=== PATIENT | male | born 1985 | race Caucasian/White ===

== ENCOUNTER 2020-11-17 10:34 | Emergency (ER) | payer BC ==
[2020-11-17 13:02] LABS: SARS-COV-2 RT PCR NEGATIVE (NEGATIVE)
--- NOTE | 2020-11-17 13:05 | EDPHYS ---
Physician Documentation [facility] Name: Donald Galloway Age: 35 yrs Sex: Male : 1985 Arrival Date: 11/17/2020 Time: 10:39 Bed 25 Private MD: ED Physician Simone Luciano HPI: 11/17 11:25 This 35 yrs old Male presents to ER via Ambulatory with complaints of jmm Congestion. 11:25 The patient or guardian reports cough. Onset: The symptoms/episode began/occurred jmm gradually, 3 day(s) ago. Modifying factors: The symptoms are alleviated by nothing. the symptoms are aggravated by nothing. Associated signs and symptoms:. This is a 35 year old male with no chronic medical conditions that presents to the ED with complaints of cough, congestion sore throat and right sided ear pain. Denies fever. . Historical: - Allergies: 10:52 No Known Allergies; iw - PMHx: 10:52 None; iw - PSHx: 10:52 None; iw - Immunization history:: Flu vaccine is not up to date. - Social history:: Smoking status: Patient reports use of chewing tobacco. Patient denies any tobacco usage or history of. ROS: 11:25 Cardiovascular: Negative for chest pain, palpitations, and edema, Respiratory: Negative jmm for shortness of breath, cough, wheezing, and pleuritic chest pain, Abdomen/GI: Negative for abdominal pain, nausea, vomiting, diarrhea, and constipation, Back: Negative for injury and pain. 11:25 Constitutional: Positive for body aches. 11:25 ENT: Positive for ear pain, sore throat. 11:25 All other systems are negative. Exam: 11:25 Constitutional: This is a well developed, well nourished patient who is awake, alert, jmm and in no acute distress. Head/Face: atraumatic. Eyes: EOMI, no conjunctival erythema appreciated 11:25 Neck: Trachea midline, Supple Chest/axilla: Normal chest wall appearance and motion. Cardiovascular: Regular rate and rhythm. No edema appreciated Respiratory: Normal respirations, no respiratory distress appreciated Abdomen/GI: Non distended, soft Back: Normal ROM Skin: General appearance color normal MS/ Extremity: Moves all extremities, no obvious deformities appreciated, no edema noted to the lower extremities Neuro: Awake and alert, normal gait Psych: Behavior is normal, Mood is normal, Patient is cooperative and pleasant 11:25 ENT: TM's: erythema, that is mild, on the right, Posterior pharynx: erythema, that is mild. Vital Signs: 10:52 BP 124 / 83; Pulse 77; Resp 16; Temp 98.8; Pulse Ox 100% ; Height 5 ft. 11 in. (180.34 iw cm); Pain 1/10; MDM: 11:25 Patient medically screened. [facility] 13:04 Data reviewed: vital signs, nurses notes. Counseling: I had a detailed discussion with kika the patient and/or guardian regarding: the historical points, exam findings, and any diagnostic results supporting the discharge/admit diagnosis, lab results, radiology results, the need for outpatient follow up, to return to the emergency department if symptoms worsen or persist or if there are any questions or concerns that arise at home. ED course: Patient is alert and non toxic in appearance in the ED. No signs of resp distress. patient advised to follow up with pcp and otherwise given strict return precaution. patient understood and agrees with the plan of care. . 11/17 11:12 Order name: Strep; Complete Time: 12:59 em1 11/17 12:44 Order name: Throat Culture EDMS 11/17 13:03 Order name: COVID-19/FLU A+B; Complete Time: 13:03 EDMS Administered Medications: No medications were administered Disposition: 15:21 Co-signature as Attending Physician, Simone Luciano MD. rn Disposition: 11/17/20 13:05 Discharged to Home. Impression: Acute pharyngitis, Acute upper respiratory infection, unspecified. - Condition is Stable. - Discharge Instructions: Pharyngitis, Upper Respiratory Infection, Adult. - Prescriptions for Zithromax Z- Jeffery 250 mg Oral Tablet - take 1 tablet by ORAL route as directed for 5 days Day 1 - take two (2) tablets one time. Day 2, 3, 4 , 5 take one (1) tablet once daily.; 6 tablet. Medrol (Jeffery) 4 mg Oral Tablets, Dose Pack - take 1 tablet by ORAL route as directed - follow package instructions; 1 packet. - Medication Reconciliation Form, Thank You Letter, Antibiotic Education, Prescription Opioid Use, Work release form form. - Follow up: Private Physician; When: 2 - 3 days; Reason: Recheck today's complaints, Continuance of care, Re-evaluation by your physician. Signatures: Dispatcher [employer] EDAL Elmer Stewart PA PA jmm Williams, Irene, RN RN iw Nieto, Roman, MD MD rn Brown, DAWNA Dallas RN Corrections: (The following items were deleted from the chart) 12: 11:11 Influenza Screen (A \T\ B)+BA.LAB.BRZ ordered. EDMS EDMS 12:08 11:12 CORONAVIRUS+MR.LAB.BRZ ordered. EDAL EDMS 13:24 13:05 11/17/2020 13:05 Discharged to Home. Impression: Acute pharyngitis; Acute upper zb respiratory infection, unspecified. Condition is Stable. Forms are Medication Reconciliation Form, Thank You Letter, Antibiotic Education, Prescription Opioid Use. Follow up: Private Physician; When: 2 - 3 days; Reason: Recheck today's complaints, Continuance of care, Re-evaluation by your physician. kika
--- NOTE | 2020-11-17 13:05 | ER ---
Nurse's Notes [facility] Name: Donald Galloway Age: 35 yrs Sex: Male : 1985 Arrival Date: 11/17/2020 Time: 10:39 Bed 25 Private MD: Diagnosis: Acute pharyngitis;Acute upper respiratory infection, unspecified Presentation: 11/17 10:52 Chief complaint: Patient states: Congestion with slight cough since Tuesday. No fever. iw Slight sore throat. Coronavirus screen: Client denies travel out of the [place] in the last 14 days. congestion, cough unrelated to allergies, difficulty breathing, runny nose, shortness of breath, sore throat, Client presents with at least one sign or symptom that may indicate coronavirus-19. Standard/surgical mask placed on the client. Ebola Screen: Patient denies travel to an Ebola-affected area in the 21 days before illness onset. Resp Distress? No respiratory distress is noted at this time. Initial Sepsis Screen: Does the patient meet any 2 criteria? No. Patient's initial sepsis screen is negative. Does the patient have a suspected source of infection? Yes: Other: nasal congestion. Risk Assessment: Do you want to hurt yourself or someone else? Patient reports no desire to harm self or others. Onset of symptoms was November 14, 2020. 10:52 Method Of Arrival: Ambulatory iw 10:52 Acuity: ZEV 4 iw Historical: - Allergies: 10:52 No Known Allergies; iw - PMHx: 10:52 None; iw - PSHx: 10:52 None; iw - Immunization history:: Flu vaccine is not up to date. - Social history:: Smoking status: Patient reports use of chewing tobacco. Patient denies any tobacco usage or history of. Screenin:22 Abuse screen: Denies threats or abuse. Denies injuries from another. Nutritional zb screening: No deficits noted. Tuberculosis screening: No symptoms or risk factors identified. Fall Risk None identified. Assessment: 13:22 General: Appears in no apparent distress. comfortable, Behavior is calm, cooperative. zb Pain: Complains of pain in throat. Neuro: Level of Consciousness is awake, alert, obeys commands. Cardiovascular: Patient's skin is warm and dry. Respiratory: Airway is patent Respiratory effort is even, unlabored, Respiratory pattern is regular, symmetrical. Respiratory: Breath sounds are clear bilaterally. GI: No deficits noted. EENT: Reports nasal congestion nasal discharge. Derm: Skin is intact, is healthy with good turgor. Musculoskeletal: Range of motion: intact in all extremities. Vital Signs: 10:52 BP 124 / 83; Pulse 77; Resp 16; Temp 98.8; Pulse Ox 100% ; Height 5 ft. 11 in. (180.34 iw cm); Pain 1/10; ED Course: 10:39 Patient arrived in ED. bp1 10:52 Arm band placed on. iw 10:55 Triage completed. iw 11:03 Elmer Stewart PA is PHCP. [facility] 11:03 Simone Luciano MD is Attending Physician. kika 11:08 Jacquelin Rodgers, RN is Primary Nurse. ll1 13:23 No provider procedures requiring assistance completed. Patient did not have IV access zb during this emergency room visit. 13:24 Patient has correct armband on for positive identification. Bed in low position. Call zb light in reach. Pulse ox on. NIBP on. Door closed. Noise minimized. Administered Medications: No medications were administered Outcome: 13:05 Discharge ordered by . jm 13:23 Discharged to home ambulatory, with family. zb 13:23 Condition: stable 13:23 Discharge instructions given to patient, Instructed on discharge instructions, follow up and referral plans. medication usage, Demonstrated understanding of instructions, follow-up care, medications, Prescriptions given X 2. 13:24 Patient left the ED. zb Signatures: Elmer Stewart PA PA jmm Williams, Irene, RN RN Jacquelin Rodgers RN RN [facility] Celena Martin RN RN zb
[2020-11-17 13:29] VITALS: BP 124/83; TEMP 98.8; O2SAT 100
== END 2020-11-17 13:24 | disposition home or self-care (01) ==
LOC: ER 10:34
DX: J06.9 Acute upper respiratory infection, unspecified (principal); J02.9 Acute pharyngitis, unspecified; F17.220 Nicotine dependence, chewing tobacco, uncomplicated; Z20.822 Contact with and (suspected) exposure to COVID-19
CPT/HCPCS: 87070; 87081; 0240U; 99283

== ENCOUNTER 2021-01-14 00:22 | Emergency (ER) | payer BC ==
--- OUTSIDE RECORDS SUMMARY | 2021-01-14 00:25 | XMS REPORT | Continuity of Care Document ---
:1985 Author Organization [facility] t Address [address] [place] [address] Dr. Oakes [address] [place] [id number] Care Team Providers Name Role Phone Unavailable Unavailable Unavailable Problems This patient has no known problems. Allergies, Adverse Reactions, Alerts This patient has no known allergies or adverse reactions. Medications This patient has no known medications. Procedures This patient has no known procedures. Results This patient has no known results.
--- NOTE | 2021-01-14 03:25 | ER ---
Nurse's Notes [facility] Name: Donald Galloway Age: 35 yrs Sex: Male : 1985 Arrival Date: 01/14/2021 Time: 00:24 Bed 26 Private MD: Diagnosis: Disease of upper respiratory tract, unspecified-COVID 19 Presentation: 01/14 01:00 Chief complaint: Patient states: is covid positive and he has had 2 negative test bs2 but has minor covid symptoms. Coronavirus screen: congestion, headache, muscle pain, nausea, runny nose, Client presents with at least one sign or symptom that may indicate coronavirus-19. Standard/surgical mask placed on the client. Provider contacted for isolation considerations. Ebola Screen: No symptoms or risks identified at this time. Initial Sepsis Screen: Does the patient meet any 2 criteria? No. Patient's initial sepsis screen is negative. Does the patient have a suspected source of infection? No. Patient's initial sepsis screen is negative. Risk Assessment: Do you want to hurt yourself or someone else? Patient reports no desire to harm self or others. Onset of symptoms was January 11, 2021. 01:00 Method Of Arrival: Ambulatory bs2 01:00 Acuity: ZEV 5 bs2 Triage Assessment: 01:00 General: Appears in no apparent distress. comfortable, well groomed, well developed, bs2 well nourished, Behavior is calm, cooperative, appropriate for age. Pain: Complains of pain in headache, sinus pressure Pain currently is 3 out of 10 on a pain scale. Respiratory: No deficits noted. Breath sounds are clear bilaterally. Historical: - Allergies: 01:00 No Known Allergies; bs2 - Home Meds: 01:00 None [Active]; bs2 - PMHx: 01:00 None; bs2 - PSHx: 01:00 None; bs2 - Immunization history:: Adult Immunizations not up to date. - Social history:: Smoking status: Patient reports use of chewing tobacco. - Family history:: not pertinent. Screenin:00 Abuse screen: Denies threats or abuse. Denies injuries from another. Nutritional bs2 screening: No deficits noted. Tuberculosis screening: No symptoms or risk factors identified. Fall Risk None identified. Assessment: 01:00 General: Appears in no apparent distress. comfortable, well groomed, well developed, bs2 well nourished, Behavior is calm, cooperative, appropriate for age. Cardiovascular: No deficits noted. Capillary refill < 3 seconds Patient's skin is warm and dry. Respiratory: No deficits noted. Airway is patent Trachea midline Respiratory effort is even, unlabored, Respiratory pattern is regular, symmetrical. Respiratory: Breath sounds are clear bilaterally. GI: No signs and/or symptoms were reported involving the gastrointestinal system. : No signs and/or symptoms were reported regarding the genitourinary system. Vital Signs: 01:00 BP 125 / 74 LA Sitting (auto/reg); Pulse 71 MON; Resp 16 S; Temp 99.1(O); Pulse Ox 100% bs2 on R/A; Weight 102.06 kg (R); Height 5 ft. 11 in. (180.34 cm) (R); Pain 3/10; 03:30 BP 124 / 70; Pulse 71; Resp 16; Temp 99.2; Pulse Ox 100% ; Pain 3/10; bs2 01:00 Body Mass Index 31.38 (102.06 kg, 180.34 cm) bs2 ED Course: 00:24 Patient arrived in ED. es 00:50 Salome Torrez MD is Attending Physician. ma2 01:00 Arm band placed on right wrist. bs2 01:00 Patient has correct armband on for positive identification. Bed in low position. Call bs2 light in reach. Side rails up X 1. Pulse ox on. NIBP on. Door closed. Noise minimized. Lights dimmed. Warm blanket given. 01:03 Mary Washburn RN is Primary Nurse. bs2 02:11 Triage completed. bs2 03:30 No provider procedures requiring assistance completed. Patient did not have IV access bs2 during this emergency room visit. Administered Medications: No medications were administered Outcome: 03:25 Discharge ordered by . ma2 03:30 Discharged to home ambulatory. bs2 03:30 Condition: stable 03:30 Discharge instructions given to patient, Instructed on discharge instructions, follow up and referral plans. medication usage, Demonstrated understanding of instructions, follow-up care, medications, Prescriptions given X 3. 03:31 Patient left the ED. bs2 Signatures: Barbara Black Mohammad, MD MD ma2 Smith, Bridget, RN RN bs2 Corrections: (The following items were deleted from the chart) 01:23 01:04 CORONAVIRUS+.ANDREEA drawn and sent. bs2 EDMS
--- NOTE | 2021-01-14 03:25 | EDPHYS ---
Physician Documentation [facility] Name: Donald Galloway Age: 35 yrs Sex: Male : 1985 Arrival Date: 01/14/2021 Time: 00:24 Bed 26 Private MD: ED Physician Salome Torrez HPI: 01/14 01:35 This 35 yrs old Male presents to ER via Unassigned with complaints of ma2 Congestion, Headache, Nausea. 01:35 Onset: The symptoms/episode began/occurred gradually, 3 day(s) ago. Associated signs ma2 and symptoms: Pertinent positives: Pertinent negatives: dizziness, malaise, neck stiffness, paresthesias. Severity of symptoms: At its worst the pain was very mild. Headache History: The patient has had previous headaches and this one is similar to previous episodes. The patient has not experienced similar symptoms in the past. Historical: - Allergies: 01:00 No Known Allergies; bs2 - Home Meds: 01:00 None [Active]; bs2 - PMHx: 01:00 None; bs2 - PSHx: 01:00 None; bs2 - Immunization history:: Adult Immunizations not up to date. - Social history:: Smoking status: Patient reports use of chewing tobacco. - Family history:: not pertinent. ROS: 01:35 Constitutional: Negative for fever, chills, and weight loss. ma2 01:35 All other systems are negative. Exam: 01:35 Constitutional: This is a well developed, well nourished patient who is awake, alert, ma2 and in no acute distress. Head/Face: Normocephalic, atraumatic. Eyes: Pupils equal round and reactive to light, extra-ocular motions intact. Lids and lashes normal. Conjunctiva and sclera are non-icteric and not injected. Cornea within normal limits. Periorbital areas with no swelling, redness, or edema. ENT: Nares patent. No nasal discharge, no septal abnormalities noted. Tympanic membranes are normal and external auditory canals are clear. Oropharynx with no redness, swelling, or masses, exudates, or evidence of obstruction, uvula midline. Mucous membranes moist. Neck: Trachea midline, no thyromegaly or masses palpated, and no cervical lymphadenopathy. Supple, full range of motion without nuchal rigidity, or vertebral point tenderness. No Meningismus. Chest/axilla: Normal chest wall appearance and motion. Nontender with no deformity. No lesions are appreciated. Cardiovascular: Regular rate and rhythm with a normal S1 and S2. No gallops, murmurs, or rubs. Normal PMI, no JVD. No pulse deficits. Respiratory: Lungs have equal breath sounds bilaterally, clear to auscultation and percussion. No rales, rhonchi or wheezes noted. No increased work of breathing, no retractions or nasal flaring. Abdomen/GI: Soft, non-tender, with normal bowel sounds. No distension or tympany. No guarding or rebound. No evidence of tenderness throughout. MS/ Extremity: Pulses equal, no cyanosis. Neurovascular intact. Full, normal range of motion. Neuro: Awake and alert, GCS 15, oriented to person, place, time, and situation. Cranial nerves II-XII grossly intact. Motor strength 5/5 in all extremities. Sensory grossly intact. Cerebellar exam normal. Normal gait. Vital Signs: 01:00 BP 125 / 74 LA Sitting (auto/reg); Pulse 71 MON; Resp 16 S; Temp 99.1(O); Pulse Ox 100% bs2 on R/A; Weight 102.06 kg (R); Height 5 ft. 11 in. (180.34 cm) (R); Pain 3/10; 03:30 BP 124 / 70; Pulse 71; Resp 16; Temp 99.2; Pulse Ox 100% ; Pain 3/10; bs2 01:00 Body Mass Index 31.38 (102.06 kg, 180.34 cm) bs2 MDM: 00:50 Patient medically screened. ma2 01:35 Differential diagnosis: hypoglycemia, hyponatremia, migraine, otitis, uremia. ma2 03:24 Data reviewed: vital signs, nurses notes. Counseling: I had a detailed discussion with ma2 the patient and/or guardian regarding: the historical points, exam findings, and any diagnostic results supporting the discharge/admit diagnosis, the presence of at least one elevated blood pressure reading (>120/80) during this emergency department visit, the need for outpatient follow up. Response to treatment: the patient's symptoms have markedly improved after treatment. 01/14 03:18 Order name: SARS-COV-2 RT PCR EDMS Administered Medications: No medications were administered Disposition Summary: 01/14/21 03:25 Discharge Ordered Location: Home ma2 Condition: Stable ma2 Diagnosis - Disease of upper respiratory tract, unspecified - COVID 19 ma2 Followup: ma2 - With: Private Physician - When: Tomorrow - Reason: Continuance of care Discharge Instructions: - Discharge Summary Sheet ma2 - 10 Things You Can Do to Manage Your COVID-19 Symptoms at Home - [facility] Forms: - Medication Reconciliation Form ma2 - Thank You Letter ma2 - Antibiotic Education ma2 - Prescription Opioid Use ma2 Prescriptions: - Diclofenac Sodium 75 mg Oral Tablet Sustained Release - take 1 tablet by ORAL route 2 times per day; 30 tablet; Refills: 0, Product ma2 Selection Permitted - Zithromax Z-Jeffery 250 mg Oral Tablet - take 1 tablet by ORAL route as directed for 5 days Day 1 - take two (2) tablets ma2 one time. Day 2, 3, 4 , 5 take one (1) tablet once daily.; 6 tablet; Refills: 0, Product Selection Permitted - Medrol (Jeffery) 4 mg Oral Tablets, Dose Pack - take 1 tablet by ORAL route as directed - follow package instructions; 1 ma2 packet; Refills: 0, Product Selection Permitted Signatures: Dispatcher [employer] EDMS Salome Torrez MD MD ma2 Mary Washburn RN RN bs2 Corrections: (The following items were deleted from the chart) 01:23 00:51 CORONAVIRUS+BRZ ordered. EDMS EDMS
[2021-01-15 06:20] VITALS: O2SAT 100
[2021-01-15 06:22] VITALS: BP 124/70; TEMP 99.2
== END 2021-01-14 03:31 | disposition home or self-care (01) ==
LOC: ER 00:22
DX: U07.1 COVID-19 (principal); F17.220 Nicotine dependence, chewing tobacco, uncomplicated
CPT/HCPCS: 99283; U0003